=== PATIENT | male | born 2000 | race Caucasian/White ===

== ENCOUNTER 2025-04-21 16:49 | Emergency (ER) | payer OTHER ==
[~2025-04-21] VITALS: Ht 170.2 cm; Wt 77.3 kg
[2025-04-21 20:30] VITALS: BP 116/65; PULSE 75; RESP 16; TEMP 97.3; O2SAT 98
== END 2025-04-21 22:30 | disposition home or self-care (01) ==
LOC: EMS 16:56
DX: S63.502A Unspecified sprain of left wrist, initial encounter (principal); X50.1XXA Overexertion from prolonged static or awkward postures, initial encounter; Y93.89 Activity, other specified; Y92.89 Other specified places as the place of occurrence of the external cause; Y99.8 Other external cause status
CPT/HCPCS: 99283